=== PATIENT | female | born 1970 | race Caucasian/White ===

== ENCOUNTER 2017-01-06 16:06 | Emergency (ER) | payer OTHER ==
[~2017-01-06] VITALS: Ht 167.6 cm; Wt 77.2 kg
[~2017-01-06 16:06] MED LIST: CLON0.5T1 PO; CYCL5TAB31 PO; ESCI10TA PO
[2017-01-06 16:18] VITALS: BP 123/70
--- NOTE | 2017-01-06 16:33 | NUR ---
Patient ambulated to bed 3 with family after providing a urine specimen. RN evaluating patient at bedside.
--- NOTE | 2017-01-06 16:49 | NUR ---
46 YO FEMALE BIB EMS C/O HEMATURIA TODAY. PT RECENTLY STOPPED COUMADIN THERAPY X2D AGO, PT HAS A HX OF LT LEG VT X9YRS. A&OX4, RESTING ON GURNEY, GURNEY TO LOWEST LEVEL, BED RAIL UP, DENIES PAIN AT THIS TIME, FAMILY AT BEDSIDE
[2017-01-06 16:55] LABS: BASOPHILS # (AUTO) 0.2 K/uL (0.00-0.22); EOSINOPHILS # (AUTO) 0.1 K/uL (0-0.4); HEMATOCRIT 37.5 % (36-48); HEMOGLOBIN 12.4 g/dL (12.0-16.0); LYMPHOCYTES # (AUTO) 2.4 K/uL (2.5-16.5); MEAN CORPUSCULAR HEMOGLOBIN 30 pg (27-31); MEAN CORPUSCULAR HGB CONC 33 g/dL (33-37); MEAN CORPUSCULAR VOLUME 89 fL (80-94); MONOCYTES # (AUTO) 0.4 K/uL (0.8-1.0); NEUTROPHILS # (AUTO) 2.3 K/uL (1.8-7.7); PLATELET COUNT (AUTO) 214 K/uL (140-450); RED CELL DISTRIBUTION WIDTH 13.8 % (11.6-13.7); WHITE BLOOD COUNT (AUTO) 5.4 K/uL (4.8-10.8)
[2017-01-06 17:00] LABS: BILIRUBIN,URINE NEGATIVE (NEGATIVE); BLOOD, URINE 1+ (NEGATIVE); COLOR,URINE YELLOW (YELLOW); LEUKOCYTE ESTERASE ,URINE NEGATIVE (NEGATIVE); NITRITE, URINE NEGATIVE (NEGATIVE); PROTEIN,URINE NEGATIVE (NEGATIVE); UGLUCOSE NEGATIVE (NEGATIVE); UROBILINOGEN,URINE 0.2 EU/dL (0.2 - 1)
[2017-01-06 17:04] LABS: APPEARANCE,URINE SLIGHTLY HAZY (CLEAR)
[2017-01-06 17:05] LABS: BACTERIA,URINE FEW /HPF (None Seen); WBC,URINE 0-3 /HPF (0-5)
[2017-01-06 17:18] LABS: ANION GAP 12.4 (8-16); CALCIUM 9.2 mg/dL (8.5-10.1); CARBON DIOXIDE 27.8 mmol/L (21-32); CREATININE 0.6 mg/dL (0.6-1.3); INR 1.3 (0.8-1.2); PARTIAL THROMBOPLASTIN TIME 27.8 secs (22-35.6); POTASSIUM 4.2 mmol/L (3.5-5.1); PROTHROMBIN TIME 13.3 secs (10.8-13.4)
[2017-01-06 17:24] LABS: ALBUMIN 3.7 g/dL (3.4-5.0); TOTAL BILIRUBIN 0.5 mg/dL (0.0-1.0); TOTAL PROTEIN, SERUM 7.8 g/dL (6.4-8.2)
[2017-01-06 17:58] VITALS: BP 117/81
--- NOTE | 2017-01-06 17:59 | NUR ---
Patient discharged with v/s stable. Written and verbal after care instructions given and explained. Patient verbalized understanding. Ambulatory with steady gait. All questions addressed prior to discharge. Advised to follow up with PMD.
== END 2017-01-06 17:59 | disposition home or self-care (01) ==
LOC: MED 16:06
DX: R31.9 Hematuria, unspecified (principal); Z90.710 Acquired absence of both cervix and uterus
CPT/HCPCS: 36415; 80053; 81001; 81025; 85025; 85610; 85730; 99284

== ENCOUNTER 2018-12-06 19:44 | Emergency (ER) | payer OTHER ==
[~2018-12-06] VITALS: Ht 167.6 cm; Wt 80.3 kg
[~2018-12-06 19:44] MED LIST changes: +CYCL-654 PO; -CYCL5TAB31 PO
[2018-12-06 19:55] VITALS: BP 149/87
--- NOTE | 2018-12-06 20:04 | NUR ---
CODE BRAIN CALLED TO RAD PER DR. GRIJALVA
--- NOTE | 2018-12-06 20:06 | NUR ---
PT TAKEN TO CT
--- NOTE | 2018-12-06 20:13 | NUR ---
PT RETURN FROM CT TO ER BED 12
--- NOTE | 2018-12-06 20:15 | NUR ---
47/F PRESENTS TO ED, C/O HEADACHE. CODE BRAIN WAS CALLED IN TRIAGE, ASSUMED CARE OF PT AT THIS TIME. PT REPORTS 8/10 PRESSURE-LIKE PAIN ON R SIDE HEAD, BEHIND R EYE, STARTED 4 DAYS AGO CONSTANTLY. PT REPORTS R EYE DROOP, SYMMETRICAL AT THIS TIME. REPORTS R MOUTH TWITCHING, MILD R SIDED ASYMMETRIC SMILE NOTED. PT AOX4, GCS 15, PERRLA MIDRANGE, SPEECH CLEAR, ACTING APPROPRIATE, NO ARM DRIFT, +2 ALL PERIPHERAL STRENGTH. HX L THIGH THROMBOSIS, HYSTERECTOMY; DENIES RX (STOPPED COUMADIN DUE TO PT'S MD STATING THAT PT CONDITION IS CHRONIC)
[2018-12-06 20:56] VITALS: BP 124/84
--- NOTE | 2018-12-06 20:56 | NUR ---
Patient discharged with v/s stable. Written and verbal after care instructions given and explained. Patient alert, oriented and verbalized understanding of instructions. Ambulatory with steady gait. All questions addressed prior to discharge. ID band removed. Patient advised to follow up with PMD. Rx of VALIUM, NAPROSYN given. Patient educated on indication of medication including possible reaction and side effects. Opportunity to ask questions provided and answered.
== END 2018-12-06 20:56 | disposition home or self-care (01) ==
LOC: MED 19:44
DX: M62.838 Other muscle spasm (principal); F41.9 Anxiety disorder, unspecified; R51 Headache; Z86.718 Personal history of other venous thrombosis and embolism; Z90.710 Acquired absence of both cervix and uterus; Z79.899 Other long term (current) drug therapy
CPT/HCPCS: 70450; 99284